=== PATIENT | female | born 1960 | race American Indian/Alaskan Native ===

== ENCOUNTER 2017-09-07 13:39 | Emergency (ER) | payer OTHER, BC ==
[2017-09-07] MEDS ORDERED: ULTRAM PO ONE (15:18)
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
[2017-09-07 17:34] VITALS: BP 154/94
== END 2017-09-07 17:32 | disposition home or self-care (01) ==
LOC: ED 13:39
DX: S86.912A Strain of unspecified muscle(s) and tendon(s) at lower leg level, left leg, initial encounter (principal); S46.812A Strain of other muscles, fascia and tendons at shoulder and upper arm level, left arm, initial encounter; M54.2 Cervicalgia; I10 Essential (primary) hypertension; Z88.0 Allergy status to penicillin; V49.09XA Driver injured in collision with other motor vehicles in nontraffic accident, initial encounter; Y93.89 Activity, other specified; Y99.8 Other external cause status; Y92.488 Other paved roadways as the place of occurrence of the external cause
CPT/HCPCS: 72040